=== PATIENT | male | born 1945 | race African-American/Black ===

== ENCOUNTER 2018-09-03 03:00 | Inpatient (IN) | payer MEDICARE, MEDICAID ==
[~2018-09-03] VITALS: Ht 190.5 cm; Wt 87.1 kg
[2018-09-03] MEDS ORDERED: ZOLPIDEM TARTRATE 10 MG TABLET PO PRN (06:15)
[2018-09-03] MEDS ORDERED: QUEtiapine FUMARATE 100 MG TABLET PO PRN (06:15)
[2018-09-03 06:56] VITALS: BP 128/73
[2018-09-03] MEDS ORDERED: ALBUTEROL SULFATE HFA 90 MCG/PUFF 8 GM INHALER IH PRN (07:30)
[2018-09-03] MEDS ORDERED: GuaiFENesin/D-METHORPHAN [SUGAR-FREE] 200-20MG/10 ML SYRUP UDCUP PO PRN (07:30)
[2018-09-03] MEDS ORDERED: ACETAMINOPHEN 325 MG TABLET PO PRN (07:30)
[2018-09-03] MEDS ORDERED: LOPERAMIDE HCL 2 MG CAPSULE PO PRN (07:30)
[2018-09-03] MEDS ORDERED: MAG HYDROX/AL HYDROX/SIMETH ES 30 ML SUSPENSION UDCUP PO PRN (07:30)
[2018-09-03] MEDS ORDERED: MAGNESIUM HYDROXIDE SUSPENSION 30 ML UDCUP PO PRN (07:30)
[2018-09-03] MEDS ORDERED: NICOTINE 14 MG/24 HOUR PATCH TD PRN (07:30)
[2018-09-03] MEDS ORDERED: ONDANSETRON HCL 4 MG TABLET PO PRN (07:30)
[2018-09-03] MEDS ORDERED: DOCUSATE SODIUM 100 MG CAPSULE PO PRN (07:30)
[2018-09-03] MEDS ORDERED: PETROLATUM,WHITE 28 GM JELLY TP PRN (07:30)
[2018-09-03] MEDS ORDERED: CloNIDine HCL 0.1 MG TABLET PO PRN (07:30)
[2018-09-03] MEDS ORDERED: IBUPROFEN 400 MG TABLET PO PRN (07:30)
[2018-09-03 08:19] VITALS: BP 138/91
[2018-09-03] MEDS ORDERED: PNEUMOCOCCAL VACCINE POLYVALENT 0.5 ML VIAL [PPSV23] IM ONE (09:30)
[2018-09-03] MEDS: ESCITALOPRAM OXALATE 10 MG TABLET PO SCH (12:28)
[2018-09-03 16:13] VITALS: BP 143/82
[2018-09-03] MEDS: SULFAMETHOX/TRIMETH DS 800-160 MG/TABLET PO SCH (16:53)
[2018-09-03] MEDS: CEPHALEXIN MONOHYDRATE 500 MG CAPSULE PO SCH (16:53)
[2018-09-03] MEDS: RisperiDONE 2 MG TABLET PO SCH (20:40)
[2018-09-04] MEDS: CEPHALEXIN MONOHYDRATE 500 MG CAPSULE PO SCH ×3 (00:05→16:42)
[2018-09-04 06:32] VITALS: BP 134/89
[2018-09-04 08:11] LABS: BASOPHILS % (AUTO) 1.3 % (0.0-2.0); HEMATOCRIT 39.6 % (41-53); HEMOGLOBIN 13.4 g/dL (13.5-17.5); LYMPHOCYTES # (AUTO) 1.4 K/uL (1.0-4.8); LYMPHOCYTES % (AUTO) 28.1 % (22.0-44.0); MEAN CORPUSCULAR HEMOGLOBIN 30.1 pg (26.0-34.0); MEAN CORPUSCULAR HGB CONC 33.7 G/dL (31.0-37.0); MEAN CORPUSCULAR VOLUME 89 fL (80-100); MONOCYTES # (AUTO) 0.7 K/uL (0.1-1.0); MONOCYTES % (AUTO) 13.4 % (2.0-9.0); NEUTROPHILS # (AUTO) 2.7 K/uL (1.8-7.7); NEUTROPHILS % (AUTO) 52.2 % (40.0-70.0); PLATELET COUNT (AUTO) 255 K/uL (150-450); RED BLOOD CELL COUNT(AUTO) 4.44 MIL/uL (4.50-5.90); RED CELL DISTRIBUTION WIDTH 13.9 % (11.5-14.5)
[2018-09-04 08:14] LABS: HEMOGLOBIN A1C 5.2 % (4.5-6.2)
[2018-09-04] MEDS: SULFAMETHOX/TRIMETH DS 800-160 MG/TABLET PO SCH ×2 (08:23→16:42)
[2018-09-04] MEDS: ESCITALOPRAM OXALATE 10 MG TABLET PO SCH (08:24)
[2018-09-04 08:39] VITALS: BP 119/67
[2018-09-04 08:41] LABS: ALBUMIN 3.4 g/dL (3.4-5.0); BILIRUBIN,TOTAL 0.5 mg/dL (0.1-1.0); CALCIUM, TOTAL 9.2 mg/dL (8.8-10.5); CHOL/HDL RATIO 3.5 (4.2-7.3); CREATININE 1.42 mg/dL (0.60-1.30); POTASSIUM 4.1 mmol/L (3.5-5.1); THYROID STIMULATING HORMONE 1.41 uIU/mL (0.36-3.74); TOTAL PROTEIN, SERUM 6.9 g/dL (6.4-8.2)
[2018-09-04 16:06] VITALS: BP 115/62
[2018-09-04] MEDS: RisperiDONE 2 MG TABLET PO SCH (20:50)
[2018-09-05] MEDS: CEPHALEXIN MONOHYDRATE 500 MG CAPSULE PO SCH ×2 (00:31→08:34)
[2018-09-05 06:33] VITALS: BP 125/73
[2018-09-05 08:05] VITALS: BP 117/59
[2018-09-05] MEDS: SULFAMETHOX/TRIMETH DS 800-160 MG/TABLET PO SCH ×2 (08:34→16:21)
[2018-09-05] MEDS: ESCITALOPRAM OXALATE 10 MG TABLET PO SCH (08:34)
[2018-09-05 10:36] LABS: AMPHET/METH SCREEN,URINE NEGATIVE (NEGATIVE); BARBITURATE SCREEN, URINE NEGATIVE (NEGATIVE); BENZODIAZEPINES SCREEN,URINE NEGATIVE (NEGATIVE); CANNABINOID SCREEN,URINE NEGATIVE (NEGATIVE); COCAINE SCREEN,URINE POSITIVE (NEGATIVE); METHADONE SCREEN, URINE NEGATIVE (NEGATIVE); OPIATE SCREEN,URINE NEGATIVE (NEGATIVE)
[2018-09-05 10:38] LABS: PHENCYCLIDINE SCREEN,URINE NEGATIVE (NEGATIVE)
[2018-09-05 10:41] LABS: APPEARANCE,URINE TURBID (CLEAR); BILIRUBIN,URINE NEGATIVE (NEGATIVE); GLUCOSE, URINE (UA) NEGATIVE (NEGATIVE); KETONES,URINE NEGATIVE (NEGATIVE); LEUKOCYTE ESTERASE ,URINE NEGATIVE (NEGATIVE); NITRATE,URINE NEGATIVE (NEGATIVE); OCCULT BLOOD,URINE MODERATE (NEGATIVE); PROTEIN,URINE NEGATIVE (NEGATIVE); UROBILINOGEN,URINE 0.2 mg/dL (<=1.0)
[2018-09-05 11:16] LABS: BACTERIA,URINE None Seen /HPF (None Seen); CALCIUM OXALATE CRYSTALS,UR Few /LPF (None Seen); WBC,URINE None Seen /HPF (0-5)
[2018-09-05 16:05] VITALS: BP 100/54
[2018-09-05] MEDS: CIPROFLOXACIN HCL 500 MG TABLET PO SCH (16:21)
[2018-09-05] MEDS: RisperiDONE 2 MG TABLET PO SCH (20:25)
[2018-09-06 06:05] VITALS: BP 102/61
[2018-09-06] MEDS: ESCITALOPRAM OXALATE 10 MG TABLET PO SCH (08:51)
[2018-09-06] MEDS: CIPROFLOXACIN HCL 500 MG TABLET PO SCH ×2 (08:51→17:06)
[2018-09-06] MEDS: SULFAMETHOX/TRIMETH DS 800-160 MG/TABLET PO SCH ×2 (08:51→17:06)
[2018-09-06 09:09] VITALS: BP 130/85
[2018-09-06 16:36] VITALS: BP 114/67
[2018-09-06] MEDS: RisperiDONE 2 MG TABLET PO SCH (20:58)
[2018-09-07 06:42] VITALS: BP 107/60
[2018-09-07 08:02] VITALS: BP 109/54
[2018-09-07] MEDS: ESCITALOPRAM OXALATE 10 MG TABLET PO SCH (08:51)
[2018-09-07] MEDS: SULFAMETHOX/TRIMETH DS 800-160 MG/TABLET PO SCH ×2 (08:51→16:55)
[2018-09-07] MEDS: CIPROFLOXACIN HCL 500 MG TABLET PO SCH ×2 (08:51→16:55)
[2018-09-07 20:08] VITALS: BP 131/80
[2018-09-07] MEDS: RisperiDONE 2 MG TABLET PO SCH (20:44)
[2018-09-08 06:51] VITALS: BP 119/62
[2018-09-08 08:14] VITALS: BP 120/63
[2018-09-08] MEDS: ESCITALOPRAM OXALATE 10 MG TABLET PO SCH (09:26)
[2018-09-08] MEDS: CIPROFLOXACIN HCL 500 MG TABLET PO SCH ×2 (09:26→17:10)
[2018-09-08] MEDS: SULFAMETHOX/TRIMETH DS 800-160 MG/TABLET PO SCH ×2 (09:26→17:10)
[2018-09-08 16:00] VITALS: BP 143/80
[2018-09-08] MEDS: RisperiDONE 2 MG TABLET PO SCH (20:39)
[2018-09-09 06:39] VITALS: BP 102/62
[2018-09-09 08:30] VITALS: BP 124/72
[2018-09-09] MEDS: SULFAMETHOX/TRIMETH DS 800-160 MG/TABLET PO SCH ×2 (08:47→16:45)
[2018-09-09] MEDS: CIPROFLOXACIN HCL 500 MG TABLET PO SCH ×2 (08:47→16:45)
[2018-09-09] MEDS: ESCITALOPRAM OXALATE 10 MG TABLET PO SCH (08:47)
[2018-09-09 16:08] VITALS: BP 133/74
[2018-09-09] MEDS: LORazepam 2 MG TABLET PO PRN (16:45)
[2018-09-09] MEDS: RisperiDONE 2 MG TABLET PO SCH (20:27)
[2018-09-10 06:27] VITALS: BP 145/83
[2018-09-10] MEDS: LORazepam 2 MG TABLET PO PRN (08:15)
[2018-09-10] MEDS: CIPROFLOXACIN HCL 500 MG TABLET PO SCH ×2 (08:15→16:31)
[2018-09-10] MEDS: SULFAMETHOX/TRIMETH DS 800-160 MG/TABLET PO SCH ×2 (08:15→16:31)
[2018-09-10] MEDS: ESCITALOPRAM OXALATE 10 MG TABLET PO SCH (08:15)
[2018-09-10 08:29] VITALS: BP 112/54
[2018-09-10 16:31] VITALS: BP 109/62
[2018-09-10] MEDS: RisperiDONE 2 MG TABLET PO SCH (20:15)
[2018-09-11 08:06] VITALS: BP 133/76
[2018-09-11] MEDS: ESCITALOPRAM OXALATE 10 MG TABLET PO SCH (08:46)
[2018-09-11] MEDS: CIPROFLOXACIN HCL 500 MG TABLET PO SCH ×2 (08:46→17:01)
[2018-09-11] MEDS: SULFAMETHOX/TRIMETH DS 800-160 MG/TABLET PO SCH ×2 (08:46→17:01)
[2018-09-11 16:29] VITALS: BP 115/64
[2018-09-11] MEDS: LORazepam 2 MG TABLET PO PRN (17:01)
[2018-09-11] MEDS: RisperiDONE 2 MG TABLET PO SCH (20:25)
[2018-09-12 00:33] VITALS: BP 108/55
[2018-09-12 08:02] VITALS: BP 113/61
[2018-09-12] MEDS: CIPROFLOXACIN HCL 500 MG TABLET PO SCH ×2 (08:46→16:18)
[2018-09-12] MEDS: SULFAMETHOX/TRIMETH DS 800-160 MG/TABLET PO SCH ×2 (08:46→16:18)
[2018-09-12] MEDS: ESCITALOPRAM OXALATE 10 MG TABLET PO SCH (08:46)
[2018-09-12] MEDS: LORazepam 2 MG TABLET PO PRN (16:18)
[2018-09-12 16:24] VITALS: BP 117/66
[2018-09-12] MEDS: RisperiDONE 2 MG TABLET PO SCH (20:40)
[2018-09-13 05:23] VITALS: BP 119/73
[2018-09-13 08:18] VITALS: BP 129/69
[2018-09-13] MEDS: ESCITALOPRAM OXALATE 10 MG TABLET PO SCH (08:51)
[2018-09-13] MEDS: SULFAMETHOX/TRIMETH DS 800-160 MG/TABLET PO SCH (08:51)
[2018-09-13] MEDS: LORazepam 2 MG TABLET PO PRN ×2 (10:45→17:06)
[2018-09-13 16:00] VITALS: BP 130/79
[2018-09-13] MEDS: RisperiDONE 2 MG TABLET PO SCH (20:41)
[2018-09-14 05:14] VITALS: BP 123/67
[2018-09-14 08:00] VITALS: BP 120/66
[2018-09-14] MEDS: ESCITALOPRAM OXALATE 10 MG TABLET PO SCH (08:30)
[2018-09-14 16:36] VITALS: BP 139/76
[2018-09-14] MEDS: RisperiDONE 2 MG TABLET PO SCH (20:37)
[2018-09-15 06:35] VITALS: BP 133/79
[2018-09-15 06:48] VITALS: BP 115/78
[2018-09-15 08:17] VITALS: BP 143/74
[2018-09-15] MEDS: ESCITALOPRAM OXALATE 10 MG TABLET PO SCH (08:52)
[2018-09-15] MEDS ORDERED: RISP2 PO (09:36)
[2018-09-15] MEDS ORDERED: ESCI10TA54 PO (09:36)
== END 2018-09-15 12:35 | disposition home or self-care (01) | DRG 750 ==
LOC: B3A 03:00
DX: F25.1 Schizoaffective disorder, depressive type (principal); R45.851 Suicidal ideations; F14.20 Cocaine dependence, uncomplicated; D64.9 Anemia, unspecified; F19.10 Other psychoactive substance abuse, uncomplicated; F41.9 Anxiety disorder, unspecified; I10 Essential (primary) hypertension; Z91.5 Personal history of self-harm; F12.10 Cannabis abuse, uncomplicated; Z59.0 Homelessness; L02.92 Furuncle, unspecified; Z79.899 Other long term (current) drug therapy
CPT/HCPCS: 80307; 83036; 84443